=== PATIENT | female | born 1955 | race Caucasian/White ===

== ENCOUNTER 2019-04-20 01:52 | Observation (INO) | payer OTHER ==
[~2019-04-20] VITALS: Ht 160 cm; Wt 81.0 kg
[2019-04-20 01:53] VITALS: Ht 160 cm; Wt 81.0 kg
[2019-04-20] MEDS ORDERED: ONDANSETRON 4 MG INJ IV STA (02:07)
[2019-04-20] MEDS ORDERED: SOD CHLORIDE 0.9% 1,000 ML IV STA (02:07)
--- NOTE | 2019-04-20 02:14 | ERD ---
ER Documentation Chief Complaint Chief Complaint dizziness with nausea. HPI 63-year-old woman with history of vertigo presents with vomiting and dizziness beginning about an hour prior to arrival. Patient states the symptoms are sim ilar to multiple previous episodes. She denies fevers or chills, no abdominal pain, no chest pain or shortness of breath. ROS All systems reviewed and are negative except as per history of present illness. Allergies Allergies: Coded Allergies: No Known Allergy (Unverified , 04/20/19) PMhx/Soc Recurrent vertigo FmHx Family History: No diabetes Physical Exam Vitals Vital Signs Date Temp Pulse Resp B/P (MAP) Pulse Ox O2 O2 Flow FiO2 Time Delivery Rate 04/20/19 80 16 111/69 100 Room Air 03:33 (83) 04/20/19 83 18 92/67 (75) 100 Room Air 03:15 04/20/19 76 28 133/80 95 Room Air 02:03 (97) 04/20/19 98.2 75 16 142/82 93 01:53 (102) Physical Exam GENERAL: Well-developed, well-nourished, nauseous, afebrile HEENT: Moist mucous membranes, pink conjunctiva, no cervical spine tenderness or step-off deformities, no goiter, no jaundice or icterus, extraocular movements intact without pain. NEURO: Alert and oriented 3, cranial nerves II through XII intact bilaterally, pupils equal round reactive to light, no focal deficits or facial asymmetry, sensation intact distally Strength 5/5 in upper and lower extremities bilaterally CARDIAC: Regular rate and rhythm, no murmurs rubs or gallops LUNGS: Clear bilaterally no wheezing crackles or stridor PSYCH: Normal affect without agitation or irritability Result Diagram: 04/20/1922404/20/19224 Results 24 hrs Laboratory Tests Test 04/20/19 02:25 White Blood Count 12.2 10^3/ul Red Blood Count 4.10 10^6/ul Hemoglobin 12.6 g/dl Hematocrit 39.3 % Mean Corpuscular Volume 95.9 fl Mean Corpuscular Hemoglobin 30.7 pg Mean Corpuscular Hemoglobin Concent 32.1 g/dl Red Cell Distribution Width 12.3 % Platelet Count 341 10^3/UL Mean Platelet Volume 10.2 fl Immature Granulocytes % 0.700 % Neutrophils % 51.8 % Lymphocytes % 37.0 % Monocytes % 6.6 % Eosinophils % 3.3 % Basophils % 0.6 % Nucleated Red Blood Cells % 0.0 /100WBC Immature Granulocytes # 0.090 10^3/ul Neutrophils # 6.3 10^3/ul Lymphocytes # 4.5 10^3/ul Monocytes # 0.8 10^3/ul Eosinophils # 0.4 10^3/ul Basophils # 0.1 10^3/ul Nucleated Red Blood Cells # 0.0 10^3/ul Sodium Level 141 mmol/L Potassium Level 3.7 mmol/L Chloride Level 106 mmol/L Carbon Dioxide Level 25 mmol/L Anion Gap 10 Blood Urea Nitrogen 16 mg/dl Creatinine 0.79 mg/dl Est Glomerular Filtrat Rate mL/min > 60 mL/min Glucose Level 247 mg/dl Calcium Level 9.0 mg/dl Total Bilirubin 0.4 mg/dl Direct Bilirubin 0.00 mg/dl Indirect Bilirubin 0.4 mg/dl Aspartate Amino Transf (AST/SGOT) 61 IU/L Alanine Aminotransferase (ALT/SGPT) 40 IU/L Alkaline Phosphatase 78 IU/L Troponin I < 0.012 ng/ml Total Protein 7.7 g/dl Albumin 4.3 g/dl Globulin 3.40 g/dl Albumin/Globulin Ratio 1.26 Lipase 136 U/L Current Medications Medications Dose Sig/Pham Start Time Status Last (Trade) Ordered Route PRN Stop Time Admin Dose Reason Admin Sodium 1,000 ml @ Q1H STAT 04/20/19 DC 04/20/19 Chloride 1,000 mls/hr IV 02:07 02:16 04/20/19 03:06 Ondansetron 4 mg ONCE STAT 04/20/19 DC 04/20/19 HCl (Zofran IV 02:07 02:16 Inj) 04/20/19 02:10 Lorazepam 0.5 mg ONCE ONCE 04/20/19 DC 04/20/19 (Ativan) IV 02:30 02:16 04/20/19 02:31 10 mg ONCE ONCE 04/20/19 DC 04/20/19 Metoclopramid IV 03:30 03:12 e HCl 04/20/19 03:31 (Reglan) Procedures/MDM IV line was established patient was placed on circular saw filer rhythm strip revealed a sinus rhythm at about 80 bpm with upright P and T waves. Patient was afebrile EKG performed, read by me: 83 bpm, normal sinus rhythm, normal axis, no acute ST segment changes, narrow QRS complex, with good R-wave progression in precordial leads. CBC and electrolytes are normal, troponin was negative, liver function tests are normal I administered 1 L normal saline IV, Zofran 4 mg IV, lorazepam 0.5 mg IV x1. Patient also later received Reglan 10 mg IV for continued nausea X-ray left shoulder 3V Interpreted by me: Bones: No fracture Joints: No dislocation Foreign body: None CT scan of the brain was negative for acute bleed mass or shift. Patient will be admitted to [facility] for continued medical management because she is still nauseous Departure Diagnosis: Primary Impression: Dizziness Additional Impression: Vertigo Condition: NIKOLAI Whitman MD Apr 20, 2019 02:14
[2019-04-20] MEDS ORDERED: LORAZEPAM 2 MG INJ IV ONE (02:30)
[2019-04-20] MEDS ORDERED: METOCLOPRAMIDE 10 MG INJ IV ONE (03:30)
[2019-04-20] MEDS ORDERED: NS + KCL 20 MEQ 1,000 ML IV SCH (04:14)
[2019-04-20] MEDS ORDERED: ONDANSETRON 4 MG INJ IV PRN (04:30)
[2019-04-20] MEDS ORDERED: DOCUSATE SODIUM 100 MG CAP PO PRN (04:30)
[2019-04-20] MEDS ORDERED: ACETAMINOPHEN 325 MG TAB PO PRN (04:30)
[2019-04-20] MEDS ORDERED: NACL 0.9% 3 ML SYG IV SCH (04:30)
[2019-04-20] MEDS ORDERED: METF-849 ORAL (07:01)
[2019-04-20] MEDS ORDERED: ASPI-817 ORAL (07:01)
[2019-04-20] MEDS ORDERED: LISI2.5T59 ORAL (07:01)
[2019-04-20] MEDS ORDERED: CALC1TAB92 ORAL (07:01)
[2019-04-20] MEDS ORDERED: ATOR10TA65 ORAL (07:01)
[2019-04-20] MEDS ORDERED: ERGO500013 ORAL (07:01)
[2019-04-20] MEDS ORDERED: MECLIZINE 12.5 MG TAB PO SCH (08:00)
[2019-04-20] MEDS ORDERED: LORAZEPAM 0.5 MG TAB PO PRN (08:00)
[2019-04-20 08:30] VITALS: BP 94/52; PULSE 76; RESP 16
[2019-04-20] MEDS ORDERED: MECL12.574 PO (08:41)
--- NOTE | 2019-04-20 08:42 | PDOCDIS ---
Discharge Instructions CONDITION [id number] Patient Condition: [id number] Good HOME CARE INSTRUCTIONS: [id number] Diet Instructions: [id number] Activity Restrictions: [id number] Slowly Increase Activity Do not operate Machinery Do not operate Power Tool FOLLOW UP/APPOINTMENTS Follow-up Plan pcp 1 week ENT specialist MEÑO HUI MD Apr 20, 2019 08:42
[2019-04-20] MEDS ORDERED: FAMOTIDINE 20 MG TAB PO SCH (09:00)
[2019-04-20] MEDS ORDERED: ENOXAPARIN 40 MG/0.4 ML SYG SC SCH (09:00)
--- NOTE | 2019-04-20 11:40 | HP ---
DATE OF ADMISSION: 04/20/2019 CHIEF COMPLAINT: Dizziness. HISTORY OF PRESENT ILLNESS: A 63-year-old female with history of benign positional vertigo, presente d to emergency room with complaint of dizziness since the day prior to admission. This was associate d with nausea and vomiting. The patient also reports left ear tinnitus and heaviness. She denies an y focal weakness or numbness. Initial evaluation in the emergency room was unremarkable. CAT scan o f the brain was normal. At the time of my visit, the patient reported significant improvement in her symptoms, but continued to have tinnitus in the left ear. PAST MEDICAL HISTORY: 1. Benign positional vertigo. 2. Hypertension. 3. Hyperlipidemia. 4. Type 2 diabetes mellitus. MEDICATIONS PRIOR TO ADMISSION: 1. Aspirin 81 mg daily. 2. Lipitor 10 mg at bedtime. 3. Vitamin D supplement. 4. Lisinopril 2.5 mg daily. 5. Metformin 500 mg daily. SOCIAL HISTORY: The patient lives at home. She denies tobacco or alcohol use. PHYSICAL EXAMINATION: GENERAL: Well-developed, well-nourished female who is in no apparent distress. VITAL SIGNS: Stable. She is afebrile. HEENT: Extraocular muscles intact. Pupils are equal and reactive to light bilaterally. No horizont al nystagmus. Ears with no evidence of wax. Tympanic membrane appeared clear. NECK: Supple. LUNGS: Clear to auscultation bilaterally. CARDIAC: Regular rate and rhythm. No murmurs, rubs or gallops. ABDOMEN: Soft, nontender, nondistended, normoactive bowel sounds. EXTREMITIES: No clubbing, cyanosis, or edema. NEUROLOGICAL: Nonfocal. LABORATORY DATA: CBC: WBC of 12.2, hemoglobin of 12.6, platelet count of 241,000. Basic metabolic panel within normal limits. Blood sugar 247. Serial troponins were negative. ASSESSMENT: 1. A 63-year-old female with recurrent benign positional vertigo. The patient has had on and off sy mptoms since August 2018. She also reports left ear tinnitus. 2. Hypertension. 3. Type 2 diabetes mellitus. 4. Hyperlipidemia. PLAN: 1. Place in med/surg observation. 2. Continue meclizine. 3. Resume previous home medications. 4. Discharge planning with referral to ear, nose, throat specialist as an outpatient. Dictated By: MEÑO CARRASCO/VALERIA Conf#: [id number] DID#: [id number] CC: LAURIE BAI MD;*End*
== END 2019-04-20 11:00 | disposition home or self-care (01) ==
LOC: E/R 01:52 → MS1 03:52 → CANBEDREQ 07:44 → MS1 09:07
PROVIDERS: ADMIT Internal Medicine; ATTEND Internal Medicine
DX: H81.10 Benign paroxysmal vertigo, unspecified ear (principal); I10 Essential (primary) hypertension; E11.9 Type 2 diabetes mellitus without complications; E78.5 Hyperlipidemia, unspecified; Z79.82 Long term (current) use of aspirin; Z79.84 Long term (current) use of oral hypoglycemic drugs
CPT/HCPCS: 70450; 73030; 80053; 82550; 82553; 83690; 84484; 85025; 93005; J1650; J2060; J2405; J2765; J7030; Z7500; Z7610; 36415; 96361; 96374; 96375; G0378; J3480